=== PATIENT | female | born 1990 | race Caucasian/White ===

== ENCOUNTER → 2016-05-13 | Outpatient (CLI) | payer OTHER ==
[~2016-05-13] MED LIST: IBUP600T26 PO; PERC5TAB12 PO
== END ==
LOC: HPND 08:29
PROVIDERS: ATTEND Obstetrics & Gynecology
DX: O36.80X0 Pregnancy with inconclusive fetal viability, not applicable or unspecified (principal); Z36 Encounter for antenatal screening of mother
CPT/HCPCS: 76801

== ENCOUNTER 2016-10-29 11:08 | Emergency (ER) | payer OTHER ==
[~2016-10-29] VITALS: Ht 162.6 cm; Wt 93.0 kg
--- NOTE | 2016-10-29 11:57 | PD ---
HPI Chief Complaint Dizziness, headache, nausea/vomiting, elevated BP Date Seen: Oct 29, 2016 Time Seen: 11:46 Travel History International Travel<30 Days: No Contact w/Intl Traveler<30Days: No History of Present Illness HPI Patient is a 26-year-old G 4P2 012 at 33 and 3/7 weeks, EDC 12/14/16, who presents to the OB ED headache and dizziness since yesterday. OB care with Dr. Gamboa. Associated symptoms include an episode of nausea and vomiting yesterday. She also has 1+ bilateral lower extremity edema for at least the last couple of weeks. She has a history of hypertension in and was noted to have blood pressure in the 140s/70s in the office on 10/14 and was started on labetalol 200 mg by mouth twice a day with last dose last night. She had an elevated blood pressure 142/72 in the office today and was sent in for further evaluation She denies leakage of fluid, vaginal bleeding, and contractions. She feels baby moving regularly. She denies diarrhea/fever/sick contacts/SOB/calf pain/ dizziness/seeing spots. History Past Medical History Medical History: Denies Significant Hx Obstetric History Obstetric History G1: 2011, . She did have LE swelling but no diagnosis. Biopsy G2: SAB 9wk G3: 2016, mild preeclampsia, not medically treated. She had repeat at 38 weeks, uncomplicated G4: Current, baseline BPs reportedly one teens over 70s, with elevated BP noted 10/14/16, started on labetalol as above Past Surgical History Narrative Surgical 2 Family History Family History: Negative Social History Alcohol Use: No Tobacco Use: No Substance Abuse: No Allergies-Medications (Allergen,Severity, Reaction): Coded Allergies: No Known Allergies (Unverified , 10/29/16) Narrative Medication PNV Labetalol 200mg BID Review of Systems Except as stated in HPI: all other systems reviewed are Neg Physical Exam Narrative GENERAL: Well-nourished, well-developed female SKIN: Warm and dry. No rashes HEAD: Normocephalic and atraumatic. EYES: No scleral icterus. No injection or drainage. ENT: No nasal drainage noted. Mucous membranes pink. Airway patent. NECK: Supple, trachea midline. No JVD. CARDIOVASCULAR: Regular rate and rhythm without murmurs, gallops, or rubs. RESPIRATORY: Breath sounds equal bilaterally. No accessory muscle use. No CVA tenderness ABDOMEN/GI: Abdomen soft, non-tender, bowel sounds present, no rebound, no guarding. She is gravid GENITOURINARY: Deferred External Genitalia: intact and normal in appearance Uterine Contractions: Absent FHT's: Category: 1 Baseline: 150 Reactive: n Variability: Moderate Decels: Intermittent short variable noted EXTREMITIES: No cyanosis or edema. BACK: Nontender without obvious deformity. No CVA tenderness. NEUROLOGICAL: Awake and alert. Motor and sensory grossly within normal limits. Five out of 5 muscle strength in all muscle groups. 1+ patellar reflexes bilaterally. No clonus. Normal speech. Normal gait. Data Data Vital Signs Reviewed: Yes (BP 132/84, P 96) Orders Vital Signs (Adult) .ON ADMISSION (10/29/16 11:40) ^ Labor Status (10/29/16 11:40) Urinalysis - C+S If Indicated (10/29/16 11:40) ^ Non Stress Test (10/29/16 11:40) ^ Hydration (10/29/16 11:40) Cbc No Diff, Includes Plts (10/29/16 11:40) Comprehensive Metabolic Panel (10/29/16 11:40) Uric Acid (10/29/16 11:40) Protein Creat Ratio, Random Ur (10/29/16 11:43) MDM Narrative Course / MDM 26 year old at 33 and 3/7 weeks gestation, THERON 12/14/16, who presents to the OB ED with dizziness, headache, and nausea and vomiting with elevated BP. Intrauterine , not in labor: Category 1 tracing No contractions on toco Cervix is closed, thick, high. Not in labor OB care is with Dr. Gamboa Hypertension in : Blood pressures elevated to 142/72 in office Repeat BP: 132/84, 116/72, most recent is 120/62 Will initiate rule out for preeclampsia CBC, CMP, urinalysis, uric acid,, urine protein/creatinine ratio pending Patient is on labetalol 200 mg twice a day at home Patient was counseled thoroughly on plan of care She is to get previously ordered 24hr urine protein She is to follow up with Dr. Gamboa - November 03 already scheduled Seen and discussed with Dr. Dorsey Diagnosis Diagnosis: Primary Impression: with 33 completed weeks gestation Additional Impression: Hypertension affecting in third trimester Disposition: 01 DISCHARGE HOME Condition: Stable Patient Instructions: 24 Hour Urine Collection (GEN) Mahnaz Elias MD R1 Oct 29, 2016 11:57 Mahnaz Elias MD R1 Oct 29, 2016 11:57
[2016-10-29 12:15] VITALS: BP 123/70; PULSE 81; PULSE 86
[2016-10-29 12:20] VITALS: PULSE 86
[2016-10-29 12:21] LABS: HEMATOCRIT 33.2 % (35.0-46.0); MEAN CELL VOLUME 84.2 FL (80.0-100.0); MEAN CORPUSCULAR HEMOGLOBIN 29.4 PG (27.0-34.0); MEAN CORPUSCULAR HGB CONC 34.9 % (32.0-36.0); PLATELET COUNT 247 TH/MM3 (150-450); RED BLOOD COUNT 3.94 MIL/MM3 (4.00-5.30); RED CELL DISTRIBUTION WIDTH 13.8 % (11.6-17.2); REVIEW FLAG FINAL; WHITE BLOOD COUNT 8.2 TH/MM3 (4.0-11.0)
[2016-10-29 12:25] VITALS: PULSE 87
[2016-10-29 12:30] VITALS: BP 115/69; PULSE 125; PULSE 82
[2016-10-29 12:30] LABS: BACTERIA, URINE FEW /hpf; BLOOD, URINE NEG (NEG); COMMENT (UR) CULT NOT INDICATED; CULTURE IF INDICATED CULT NOT INDICATED; GLUCOSE,URINE 70 mg/dL (NEG); KETONE, URINE NEG (NEG); MUCUS URINE FEW /lpf (OCC); NITRITE,URINE NEG (NEG); PH, URINE 6.5 (5.0-8.5); SQUAMOUS EPITHELIAL CELL URINE 14 /hpf (0-5); TRANSITIONAL EPI CELLS, URINE <1 /hpf; URINE COLOR YELLOW (YELLW/STRAW)
[2016-10-29 12:39] LABS: ANION GAP 8 MEQ/L (5-15); AST (GOT) 10 U/L (15-37); BICARBONATE 23.9 MEQ/L (21.0-32.0); BLOOD UREA NITROGEN 6 MG/DL (7-18); CHLORIDE 106 MEQ/L (98-107); GLOMERULAR FILTRATION RATE 184 ML/MIN (>89); POTASSIUM 3.5 MEQ/L (3.5-5.1); SODIUM (NA) 138 MEQ/L (136-145); URIC ACID 3.3 MG/DL (2.6-6.0)
[2016-10-29 12:40] LABS: ALT (GPT) 12 U/L (10-53)
[2016-10-29 12:42] LABS: ALKALINE PHOSPHATASE 100 U/L (45-117); TOTAL BILIRUBIN ADULT 0.2 MG/DL (0.2-1.0)
== END 2016-10-29 13:27 | disposition home or self-care (01) ==
LOC: HOBED 11:08
DX: O12.03 Gestational edema, third trimester (principal); O16.3 Unspecified maternal hypertension, third trimester; R51 Headache; R42 Dizziness and giddiness; R11.2 Nausea with vomiting, unspecified; Z3A.33 33 weeks gestation of pregnancy
CPT/HCPCS: 59025; 80053; 81001; 82570; 84156; 84550; 85027

== ENCOUNTER 2016-11-29 14:53 | Inpatient (IN) | payer OTHER ==
[2016-11-29] VITALS (33 sets, daily range): BP systolic 131–156; BP diastolic 71–95; PULSE 19–80; RESP 18–19; TEMP 97.5–98.5; O2SAT 100
[2016-11-29] MEDS ORDERED: ceFAZolin 2 GM PREMIX 50 ML IV SCH (17:45)
[2016-11-29] MEDS: LACTATED RINGER'S 1000 ML IV SCH (17:45)
[2016-11-29] MEDS ORDERED: LACTATED RINGER'S 1000 ML IV ONE (17:45)
[2016-11-29] MEDS ORDERED: CITRIC ACID-SODIUM CITRATE LIQ 30 ML UDC PO SCH (17:45)
[2016-11-29 18:12] LABS: BACTERIA, URINE RARE /hpf; BLOOD, URINE NEG (NEG); COMMENT (UR) CULT NOT INDICATED; CULTURE IF INDICATED CULT NOT INDICATED; GLUCOSE,URINE TRACE mg/dL (NEG); KETONE, URINE NEG (NEG); MUCUS URINE MOD /lpf (OCC); NITRITE,URINE NEG (NEG); SQUAMOUS EPITHELIAL CELL URINE 34 /hpf (0-5); URINE COLOR YELLOW (YELLW/STRAW)
[2016-11-29 18:13] LABS: AUTOMATED NEUTROPHIL # 5.3 TH/MM3 (1.8-7.7); BASOPHIL % 0.2 % (0.0-2.0); EOSINOPHIL # 0.1 TH/MM3 (0-0.4); EOSINOPHIL % 0.8 % (0.0-4.0); HEMATOCRIT 35.4 % (35.0-46.0); HEMO FLAGS DIFF FINAL; LYMPH % 22.9 % (9.0-44.0); LYMPHOCYTE # 1.8 TH/MM3 (1.0-4.8); MEAN CELL VOLUME 85.6 FL (80.0-100.0); MEAN CORPUSCULAR HEMOGLOBIN 29.5 PG (27.0-34.0); MEAN CORPUSCULAR HGB CONC 34.5 % (32.0-36.0); MONO % 9.6 % (0.0-8.0); NEUT % 66.5 % (16.0-70.0); PLATELET COUNT 226 TH/MM3 (150-450); RED BLOOD COUNT 4.13 MIL/MM3 (4.00-5.30); RED CELL DISTRIBUTION WIDTH 13.8 % (11.6-17.2)
[2016-11-29 18:50] LABS: ANION GAP 12 MEQ/L (5-15); AST (GOT) 12 U/L (15-37); BICARBONATE 18.9 MEQ/L (21.0-32.0); BLOOD UREA NITROGEN 8 MG/DL (7-18); CHLORIDE 106 MEQ/L (98-107); GLOMERULAR FILTRATION RATE 154 ML/MIN (>89); POTASSIUM 3.8 MEQ/L (3.5-5.1); SODIUM (NA) 137 MEQ/L (136-145)
[2016-11-29 18:51] LABS: ALT (GPT) 12 U/L (10-53)
[2016-11-29 18:54] LABS: ALKALINE PHOSPHATASE 141 U/L (45-117); TOTAL BILIRUBIN ADULT 0.2 MG/DL (0.2-1.0)
[2016-11-29] MEDS ORDERED: OXYTOCIN 10 UNIT/ML AMP ONE (18:57)
[2016-11-29] MEDS ORDERED: MORPHINE SULFATE PF 10 MG/10 ML VIAL ONE ×2 (21:13→22:02)
--- NOTE | 2016-11-29 21:27 | PD.OB.DELI ---
Procedure Note Section Procedure Pre Op Diagnosis IUP@Term, hx of prior , undesired fertilty, nonreassuring testing , ghtn Post Op Diagnosis: Performed by Alisha Gamboa MD Procedure: Repeat Low Transverse Sec, Other (bilateral tubal ligation) Indication for delivery: Desired elective repeat Informed consent obtained: For procedure Confirmed correct: Patient, Procedure, Time-out taken Anesthesia: Spinal Urinary catheter: Inserted using sterile technique Sterile preparation: Duraprep, In usual fashion Position: Supine with wedge to left side Operative Features Skin Incision: Pfannenstiel Uterine Incision: Low transverse w/knife / blunt ext Membranes Ruptured: Artificially Presentation: Occiput anterior, Vertex Delivery of : Uneventful : Female, Single One Minute : 8 Five Minute : 9 Weight: 5-9 Status of infant: Viable, Nursery present Placenta delivered: Intact, Sent to pathology Medications: Antibiotics, Oxytocin Estimated blood loss: 600 ml Procedure tolerated: Well Maternal Condition: Stable Condition: Stable Procedure in detail After informed consent was obtained, she consented. Her previous incision is removed in an elliptical fashion. The underlying layer of fascia is reached using the Bovie. The fascia is incised in the midline and the incision is extended laterally. Diana clamps were used to elevate the fascia superiorly and inferiorly and the rectus muscles are dissected off. The peritoneum was identified and entered sharply. The bladder blade was inserted. The vesicouterine peritoneum was identified, tented open and entered sharply. The bladder blade was then reinserted. A transverse incision was made over the lower uterine segment to layer just exposing membranes; these were ruptured for clear fluid. The uterine incision was extended laterally digitally. The vertex is then delivered atraumatically through the incision followed by the remainder of the infant's body. The cord is doubly clamped and cut. The is passed off to the waiting nursery team. Once this was done, attention is then turned back to the uterine field. The placenta is removed manually intact with three-vessel cord. The uterus was exteriorized, cleared of all clot and debris. The uterine incision was repaired using 1 Chromic suture in a running locked fashion. Once hemostasis was assured, the patient again confirms that she desires permanent sterilization. The patient's left fallopian tube is identified, followed out to its fimbriated end and then grasped using the Weiner clamp and approximately a 2 centimeter knuckle of fallopian tube is doubly suture ligated and amputated. The tubal ostia is cauterized. The same procedure is then carried out on the patient's right fallopian tube. Once this was done attention was then turned back to the uterine incision which remained hemostatic. The uterus was returned to the abdominal cavity. The gutters were cleared of all clot and debris. Seprafilm was placed over the incision. The rectus muscles were re-approximated using 0 Chromic suture in interrupted fashion. The fascia was re-approximated using 1 Vicryl suture in a running fashion. The subcutaneous fat is irrigated and made hemostatic and re- approximated using 3-0 Chromic suture. The skin is closed using 3-0 Monocryl suture. Alisha Gamboa MD Nov 29, 2016 21:27
[2016-11-29] MEDS ORDERED: ZOLPIDEM TARTRATE 5 MG TAB PO PRN (21:30)
[2016-11-29] MEDS ORDERED: SODIUM CHLORIDE 0.9% FLUSH 10 ML FLUSH IV FLUSH PRN (21:30)
[2016-11-29] MEDS ORDERED: SIMETHICONE 80 MG CHEWABLE TAB PO PRN (21:30)
[2016-11-29] MEDS ORDERED: OXYTOCIN 30 UNITS-500ML PREMIX 500 ML IV ONE ×2 (21:30)
[2016-11-29] MEDS ORDERED: OXYTOCIN 10 UNIT/ML AMP XX ONE (21:30)
[2016-11-29] MEDS ORDERED: ONDANSETRON HCL 4 MG/2 ML VIAL IV PUSH PRN (21:30)
[2016-11-29] MEDS ORDERED: KETOROLAC TROMETHAMINE 60 MG/2 ML (IM) VIAL IM PRN ×2 (21:30)
[2016-11-29] MEDS ORDERED: ACETAMINOPHEN 1000 MG/100 ML VIAL IV ONE ×2 (21:30→21:44)
[2016-11-29] MEDS ORDERED: EPIDURAL-DO NOT ADMINISTER ANTICOAGULANTS PRN (21:50)
[2016-11-29] MEDS ORDERED: EPIDURAL-DIPHENHYDRAMINE HCL 50 MG/ML VIAL IV PUSH PRN (21:50)
[2016-11-29] MEDS ORDERED: EPIDURAL-NALOXONE HCL 0.4 MG/ML AMP IV PRN (21:50)
[2016-11-29] MEDS ORDERED: EPIDURAL-NO SYSTEMIC NARCOTICS PRN (21:50)
[2016-11-29] MEDS ORDERED: EPIDURAL-DIPHENHYDRAMINE HCL 50 MG CAP PO PRN (21:50)
[2016-11-29] MEDS ORDERED: DEXAMETHASONE SOD PHOS 4 MG/ML VIAL IV ONE (22:02)
[2016-11-29] MEDS ORDERED: METOCLOPRAMIDE HCL 10 MG/2 ML VIAL IV ONE (22:02)
[2016-11-29] MEDS ORDERED: ONDANSETRON HCL 4 MG/2 ML VIAL IV PUSH ONE (22:02)
[2016-11-29] MEDS ORDERED: OXYTOCIN 30 UNITS-500ML PREMIX 500 ML ONE (22:33)
[2016-11-30] MEDS: LACTATED RINGER'S 1000 ML IV SCH ×2 (00:12→16:14)
[2016-11-30] MEDS ORDERED: LACTATED RINGER'S 1000 ML INJ 1,000 ML IV SCH (02:27)
[2016-11-30 04:07] VITALS: BP 119/71; PULSE 85; RESP 18; TEMP 98.1
[2016-11-30] MEDS: oxyCODONE/ACETAMINOPHEN 5 MG/325 MG TAB PO PRN ×5 (06:11→22:29)
[2016-11-30] MEDS ORDERED: OXYTOCIN 30 UNITS-500ML PREMIX 500 ML IV PRN (07:30)
[2016-11-30 08:35] VITALS: BP 135/88; PULSE 70; RESP 20; TEMP 98
[2016-11-30] MEDS: SODIUM CHLORIDE 0.9% FLUSH 10 ML FLUSH IV FLUSH SCH (09:00)
[2016-11-30] MEDS: IBUPROFEN 600 MG TAB PO PRN ×2 (10:21→18:24)
[2016-11-30 13:38] LABS: AUTOMATED NEUTROPHIL # 7.5 TH/MM3 (1.8-7.7); BASOPHIL % 0.1 % (0.0-2.0); EOSINOPHIL % 0.3 % (0.0-4.0); HEMATOCRIT 35.1 % (35.0-46.0); HEMO FLAGS DIFF FINAL; LYMPH % 17.6 % (9.0-44.0); LYMPHOCYTE # 1.8 TH/MM3 (1.0-4.8); MEAN CELL VOLUME 86.1 FL (80.0-100.0); MEAN CORPUSCULAR HGB CONC 33.7 % (32.0-36.0); MONO % 9.4 % (0.0-8.0); NEUT % 72.6 % (16.0-70.0); PLATELET COUNT 222 TH/MM3 (150-450); RED BLOOD COUNT 4.08 MIL/MM3 (4.00-5.30); RED CELL DISTRIBUTION WIDTH 13.9 % (11.6-17.2); WHITE BLOOD COUNT 10.3 TH/MM3 (4.0-11.0)
[2016-11-30 14:50] VITALS: BP 116/79; PULSE 90; RESP 18; TEMP 98
[2016-11-30] MEDS ORDERED: MEASLES, MUMPS, RUBELLA VACCINE 0.5 ML VIAL SQ ONE (16:00)
[2016-11-30] MEDS ORDERED: DIPHTH/TETANUS/ACEL PERTUSSIS (BOOSTER) 0.5 ML VIAL/PFS IM ONE (16:00)
[2016-11-30] MEDS: DOCUSATE SODIUM 50 MG/SENNA 8.6 MG TAB PO PRN (18:23)
[2016-11-30 21:00] VITALS: BP 151/93; PULSE 96; RESP 18; TEMP 98.7
[2016-11-30 21:30] VITALS: BP 118/68; PULSE 88
[2016-11-30 22:00] VITALS: RESP 18
--- NOTE | 2016-11-30 22:47 | HHI.OB ---
Subjective Post Operative Day: 1 Remarks pain controlled, edvin po, +void, flatus Objective Vitals/I&O Vital Signs Date Time Temp Pulse Resp B/P Pulse Ox O2 Delivery O2 Flow Rate FiO2 11/30/16 22:00 18 11/30/16 21:30 88 118/68 11/30/16 21:00 96 18 151/93 11/30/16 21:00 98.7 11/30/16 14:50 98.0 90 18 116/79 11/30/16 08:35 98.0 70 20 135/88 11/30/16 04:07 85 119/71 11/30/16 04:07 98.1 18 11/29/16 23:56 98.4 73 18 136/72 Result Diagram: 11/30/16 1313 11/29/16 1530 Objective Remarks GENERAL: Well-nourished, well-developed patient. CARDIOVASCULAR: Regular rate and rhythm without murmurs, gallops, or rubs. RESPIRATORY: Breath sounds equal bilaterally. No accessory muscle use. ABDOMEN/GI: Abdomen soft, non-tender, bowel sounds present. Incision: Clean, dry and intact. Fundus: Firm, non-tender at umbilicus. GENITOURINARY: Light to moderate bleeding. EXTREMITIES: No cyanosis or edema, non-tender, without signs of DVT. Medications and IVs Current Medications Medications (Trade) Dose Ordered Sig/Sravatnhi Route Start Time Stop Time Status Last Admin (Lr 1000 ml Inj) 1,000 ml @ 150 mls/hr Q6H40M IV 11/29/16 17:45 11/30/16 00:12 (NS Flush) 2 ml BID IV FLUSH 11/30/16 09:00 11/30/16 09:00 (NS Flush) 2 ml UNSCH PRN IV FLUSH 11/29/16 21:30 (Mylicon Chew) 80 mg QID PRN PO 11/29/16 21:30 (Motrin) 600 mg Q6H PRN PO 11/29/16 21:30 11/30/16 18:24 (Percocet 5-325 Mg) 1 tab Q4H PRN PO 11/29/16 21:30 11/30/16 06:11 (Percocet 5-325 Mg) 2 tab Q4H PRN PO 11/29/16 21:30 11/30/16 22:29 (Katherine-Colace) 2 tab Q12H PRN PO 11/29/16 21:30 11/30/16 18:23 (Ambien) 5 mg HS PRN PO 11/29/16 21:30 (Zofran Inj) 4 mg Q6H PRN IV PUSH 11/29/16 21:30 Assessment/Plan Problem List: (1) delivery, delivered, current hospitalization Plan: cont po meds advance diet (2) Hypertension affecting in third trimester Plan: stable without meds cont to hold labetalol Alisha Gamboa MD Nov 30, 2016 22:47
[2016-12-01] MEDS: IBUPROFEN 600 MG TAB PO PRN ×3 (00:23→15:43)
[2016-12-01] MEDS: oxyCODONE/ACETAMINOPHEN 5 MG/325 MG TAB PO PRN ×3 (04:43→14:05)
[2016-12-01] MEDS: LACTATED RINGER'S 1000 ML IV SCH ×2 (06:59→16:25)
[2016-12-01] MEDS: DOCUSATE SODIUM 50 MG/SENNA 8.6 MG TAB PO PRN (08:39)
[2016-12-01 08:45] VITALS: BP 123/81; PULSE 96; RESP 20; TEMP 97.7
[2016-12-01] MEDS: SODIUM CHLORIDE 0.9% FLUSH 10 ML FLUSH IV FLUSH SCH (09:00)
[2016-12-01] MEDS ORDERED: IBUP-232 PO (16:36)
[2016-12-01] MEDS ORDERED: OXYC1TAB63 PO (16:36)
--- NOTE | 2016-12-01 17:08 | HHI.DS ---
Admission Date Nov 29, 2016 at 14:53 Discharge Date: Dec 01, 2016 Admitting Diagnosis IUP@ Term, hx of prior , undesired fertility, nonreassuring testing, gestational hypertension Diagnosis: (1) Hypertension affecting in third trimester Diagnosis: Secondary (2) delivery, delivered, current hospitalization Diagnosis: Principal Delivery Date: Nov 29, 2016 : Repeat : Female, Single Hospital Course pt was admitted from the office with nonreassuring testing for a repeat c- section. pt did well and was voiding by POD 1. by POD 2 pt was voiding and passing gas, with good pain control and stable for d/c home. Pt Condition on Discharge: Stable Discharge Disposition: Discharge Home Discharge Instructions Diet Instructions: As Tolerated, No Restrictions Additional Diet Instructions: Drink at least 8 - 16 oz bottles of water a day Activities You Can Perform: Shower Only-No Bath Activities to Avoid: Prolonged Standing, Strenuous Activity, Sexual Activity Additional Activity Instruc.: No driving until off pain medications Do not lift anything heavier than your baby in an carrier Alisha Gamboa MD Dec 01, 2016 17:07
== END 2016-12-01 18:19 | disposition home or self-care (01) | DRG 766 ==
LOC: H2EB 14:53 → H1EA 23:21
PROVIDERS: ADMIT Obstetrics & Gynecology; ATTEND Obstetrics & Gynecology
PROC: 10D00Z1 Extraction of Products of Conception, Low, Open Approach (ICD-10-PCS; principal; 2016-11-29)
PROC: 0UB70ZZ Excision of Bilateral Fallopian Tubes, Open Approach (ICD-10-PCS; 2016-11-29)
PROC: 0HB7XZZ Excision of Abdomen Skin, External Approach (ICD-10-PCS; 2016-11-29)
PROC: 3E0P05Z Introduction of Adhesion Barrier into Female Reproductive, Open Approach (ICD-10-PCS; 2016-11-29)
DX: O13.4 Gestational [pregnancy-induced] hypertension without significant proteinuria, complicating childbirth (principal); O34.211 Maternal care for low transverse scar from previous cesarean delivery; Z30.2 Encounter for sterilization; Z37.0 Single live birth; Z3A.39 39 weeks gestation of pregnancy
CPT/HCPCS: 59025; 80053; 81001; 85025; 86850; 86900; 86901; 88302; 90715; C1765; J0131; J0690; J1100; J1885; J2274; J2405; J2590; J2765; J7120